=== PATIENT | male | born 1950 | race Two or more races ===

== ENCOUNTER 2022-12-25 07:16 | Day surgery (SDC) | payer OTHER ==
[~2022-12-25 07:16] MED LIST: CRESTOR10 MG PO; MICARDIS80 MG PO; PRISTIQ ER50 MG PO
[2022-12-25] MEDS ORDERED: TRAMADOL HCL50 MG PO (13:18)
[2022-12-25] MEDS ORDERED: TYLENOL ARTHRI650 MG PO (13:18)
[2022-12-25] MEDS ORDERED: MIRALAX17 GM PO (13:18)
== END 2022-12-25 17:45 | disposition home or self-care (01) ==
LOC: CIR.AMB 07:16
PROVIDERS: ATTEND Surgery
DX: K40.90 Unilateral inguinal hernia, without obstruction or gangrene, not specified as recurrent (principal); K42.9 Umbilical hernia without obstruction or gangrene; Z88.6 Allergy status to analgesic agent; I10 Essential (primary) hypertension; E78.49 Other hyperlipidemia; Z87.891 Personal history of nicotine dependence; Z20.822 Contact with and (suspected) exposure to COVID-19
CPT/HCPCS: 49592; 49650; C1781

== ENCOUNTER 2023-03-05 19:06 | Inpatient (IN) | payer OTHER ==
[~2023-03-05] VITALS: Ht 175.3 cm; Wt 84.4 kg
[~2023-03-05 19:06] MED LIST changes: +MIRALAX17 GM PO; +TRAMADOL HCL50 MG PO; +TYLENOL ARTHRI650 MG PO
--- NOTE | 2023-03-05 19:32 | NUR ---
PTE ALERTA Y ORIENTADO X3. KHUSHBOO REFERIDO MEDICO DE DR. FROYLAN GODINEZCTO POR DOLOR ABDOMINAL. SE DOROTHY SV Y SE UBICA PTE.
--- NOTE | 2023-03-05 22:34 | NUR ---
PTE ALERTA Y ORIENTADO X3. SE DOROTHY MUESTRAS DE LAB CON MEDIDAS ASEPTICAS Y SE ADMINISTRA MEDICAMENTO STEVE ORDEN MEDICA. SE COLOCA NASOGASTRICO EN FOSA NASAL IZQUIERDA STEVE ORDEN MEDICA A SUCCION INTERMITENTE. PTE EN ESPERA DE CT.
== END 2023-03-07 13:51 | disposition home or self-care (01) | DRG 394 ==
LOC: ER 19:06 → MEDI 22:54
PROVIDERS: ADMIT Internal Medicine; ATTEND Internal Medicine
PROC: BW21ZZZ Computerized Tomography (CT Scan) of Abdomen and Pelvis (ICD-10-PCS; principal; 2023-03-05)
DX: K40.20 Bilateral inguinal hernia, without obstruction or gangrene, not specified as recurrent (principal); N17.9 Acute kidney failure, unspecified; K31.84 Gastroparesis; Z20.822 Contact with and (suspected) exposure to COVID-19; I12.9 Hypertensive chronic kidney disease with stage 1 through stage 4 chronic kidney disease, or unspecified chronic kidney disease; N18.9 Chronic kidney disease, unspecified; E78.5 Hyperlipidemia, unspecified

== ENCOUNTER 2023-05-12 14:16 | Inpatient (IN) | payer OTHER ==
[~2023-05-12] VITALS: Ht 175.3 cm; Wt 793.8 kg
[2023-05-12] MEDS ORDERED: CRESTOR5 MG (14:31)
[2023-05-12] MEDS ORDERED: REGLAN5 MG/5 ML PO (14:31)
[2023-05-13] MEDS ORDERED: FAMOTIDINE40 MG (10:41)
[2023-05-13] MEDS ORDERED: PANTOPRAZOLE SO40 MG (10:41)
[2023-05-22] MEDS ORDERED: CRESTOR10 MG PO (16:05)
[2023-05-22] MEDS ORDERED: MICARDIS80 MG PO (16:05)
[2023-05-22] MEDS ORDERED: FAMOTIDINE40 MG PO (16:06)
[2023-05-22] MEDS ORDERED: CYANOCOBAL1000 MCG/1 IM (16:06)
[2023-05-22] MEDS ORDERED: FOLIC ACID5 MG/1 ML IV (16:07)
[2023-05-22] MEDS ORDERED: CLEOCIN HCL300 MG PO (16:08)
== END 2023-05-22 17:20 | disposition home or self-care (01) | DRG 326 ==
LOC: ER 14:16 → SURH 18:08 → ICU-2 18:08 → O/R 18:08 → SEC-K 18:08 → ICU-2 18:57 → O/R 20:41 → ICU 05-13 15:49 → SURH 05-20 13:49 → ICU-2 05-20 15:15 → ICU 05-20 15:16 → SURH 05-20 20:16
PROVIDERS: ADMIT Internal Medicine; ATTEND Internal Medicine
PROC: 0D9670Z Drainage of Stomach with Drainage Device, Via Natural or Artificial Opening (ICD-10-PCS; 2023-05-12)
PROC: BW21ZZZ Computerized Tomography (CT Scan) of Abdomen and Pelvis (ICD-10-PCS; 2023-05-12)
PROC: 0DB60ZZ Excision of Stomach, Open Approach (ICD-10-PCS; principal; 2023-05-13)
PROC: 0DS60ZZ Reposition Stomach, Open Approach (ICD-10-PCS; 2023-05-13)
PROC: 0W9J0ZZ Drainage of Pelvic Cavity, Open Approach (ICD-10-PCS; 2023-05-13)
PROC: 02HV33Z Insertion of Infusion Device into Superior Vena Cava, Percutaneous Approach (ICD-10-PCS; 2023-05-17)
PROC: 30233N1 Transfusion of Nonautologous Red Blood Cells into Peripheral Vein, Percutaneous Approach (ICD-10-PCS; 2023-05-17)
PROC: BD15YZZ Fluoroscopy of Upper GI using Other Contrast (ICD-10-PCS; 2023-05-18)
DX: K56.2 Volvulus (principal); K65.1 Peritoneal abscess; N17.9 Acute kidney failure, unspecified; D62 Acute posthemorrhagic anemia; B37.89 Other sites of candidiasis; E87.6 Hypokalemia; E78.5 Hyperlipidemia, unspecified; I12.9 Hypertensive chronic kidney disease with stage 1 through stage 4 chronic kidney disease, or unspecified chronic kidney disease; N18.9 Chronic kidney disease, unspecified

== ENCOUNTER 2023-08-30 11:24 | Emergency (ER) | payer OTHER ==
[~2023-08-30] VITALS: Ht 182.9 cm; Wt 68.9 kg
[~2023-08-30 11:24] MED LIST changes: +CLEOCIN HCL300 MG PO; +CRESTOR5 MG; +CYANOCOBAL1000 MCG/1 IM; +FAMOTIDINE40 MG; +FAMOTIDINE40 MG PO; +FOLIC ACID5 MG/1 ML IV; +PANTOPRAZOLE SO40 MG; +REGLAN5 MG/5 ML PO
[2023-08-30 13:11] LABS: CREATININE SERUM 1.37 mg/dL (0.70-1.30); GFR 51.22; POTASSIUM 4.71 mEq/L (3.5-5.1)
[2023-08-30 13:13] LABS: HEMATOCRIT 36.3 % (39.0-48.0); HEMOGLOBIN 12.2 g/dL (13-16.00); MEAN CELL VOLUME 86.9 fL (80.0-100.00); MEAN CORPUSCULAR HEMOGLOBIN 29.2 pg (27.00-32.0); MEAN CORPUSCULAR HGB CONC 33.6 g/dl (32.0-36.0); PLATELET COUNT 251 K/uL (150-450); RED BLOOD COUNT 4.18 M/uL (4.00-6.00); RED CELL DISTRIBUTION WIDTH 16.2 % (11.5-14.5)
[2023-08-30 14:24] LABS: PH,URINE 7.5 (5.0-8.0); URINE APPEARANCE Clear; URINE BILIRRUBIN Negative (NEGATIVE); URINE BLOOD Large; URINE COLOR Yellow; URINE GLUCOSE Negative (NEGATIVE); URINE LEUKOCYTE Negative; URINE NITRATE Negative; URINE PROTEIN Trace (NEGATIVE); URINE UROBILINOGEN 0.2 E.U./dl
[2023-08-30 14:28] LABS: URINE BACTERIA 32.7 uL (0.0-1933); URINE EPITHELIAL CELLS 2.1 uL (0.0-38.8); URINE WBC 10.1 uL (0.0-23.2)
[2023-08-30] MEDS ORDERED: TAMS0.4C PO (18:21)
[2023-08-30] MEDS ORDERED: TRAMADOL HCL50 MG PO (18:21)
== END 2023-08-30 18:36 | disposition home or self-care (01) ==
LOC: ER
PROVIDERS: General Practice
DX: N20.1 Calculus of ureter (principal); R10.32 Left lower quadrant pain; K21.9 Gastro-esophageal reflux disease without esophagitis; Z88.6 Allergy status to analgesic agent
CPT/HCPCS: 36415; 74019; 74176; 96365; 96366; 99284; J2405; J3490; J7030

== ENCOUNTER 2023-11-30 01:49 | Inpatient (IN) | payer OTHER ==
[~2023-11-30] VITALS: Ht 172.7 cm; Wt 72.6 kg
[~2023-11-30 01:49] MED LIST changes: +TAMS0.4C PO
[2023-11-30] MEDS ORDERED: MEPERIDINE HCL/PF 50 MG/ML VIAL IM STA (02:21)
[2023-11-30] MEDS ORDERED: PROMETHAZINE HCL 50 MG/ML AMPUL IM STA (02:21)
[2023-11-30] MEDS ORDERED: 0.9 % SODIUM CHLORIDE 1,000 ML IV ONE (02:30)
[2023-11-30 04:06] LABS: BILIRUBIN TOTAL 0.41 mg/dL (0.3-1.2); BILIRUBIN,CONJUGATED 0.14 mg/dL (0.0-0.2); BILIRUBIN,UNCONJUGATED 0.27 mg/dL (0.0-0.6); CALCIUM 9.5 mg/dL (8.5-10.1); CREATININE SERUM 1.58 mg/dL (0.70-1.30); GFR 43.45; GLOBULINA 4.2 G/DL (2.4-3.5); POTASSIUM 4.12 mEq/L (3.5-5.1); TOTAL PROTEIN 8.2 gm/dL (6.4-8.2)
[2023-11-30 04:20] LABS: HEMATOCRIT 41.4 % (39.0-48.0); HEMOGLOBIN 13.8 g/dL (13-16.00); MEAN CELL VOLUME 87.1 fL (80.0-100.00); MEAN CORPUSCULAR HGB CONC 33.3 g/dl (32.0-36.0); PLATELET COUNT 295 K/uL (150-450); RED BLOOD COUNT 4.75 M/uL (4.00-6.00); RED CELL DISTRIBUTION WIDTH 15.2 % (11.5-14.5)
[2023-11-30 04:27] LABS: INR 1.02; PARTIAL THROMBOPLASTIN TIME 24.6 SECONDS (22.0-34.0); PROTHROMBIN TIME 10.7 SECONDS (9.0-11.5)
[2023-11-30] MEDS ORDERED: 0.9 % SODIUM CHLORIDE 1,000 ML IV SCH (10:15)
[2023-11-30] MEDS ORDERED: PANTOPRAZOLE SODIUM 40 MG/VIAL VIAL IV PUSH SCH (10:16)
[2023-11-30] MEDS ORDERED: LORazepam 2 MG/ML VIAL IV PUSH PRN (10:30)
[2023-11-30] MEDS ORDERED: HYOSCYAMINE SULFATE 0.125 MG TAB.SUBL SL PRN (10:30)
[2023-11-30] MEDS ORDERED: MORPHINE SULFATE 4 MG/ML VIAL IV PRN (10:30)
[2023-11-30] MEDS ORDERED: PIPERACILLIN/TAZOBACTAM SODIUM 3.375 GM in 0.9 % SODIUM CHLORIDE 100 ML IV SCH (12:00)
[2023-11-30] MEDS ORDERED: ENALAPRILAT DIHYDRATE 1.25 MG/ML VIAL IV SCH (12:00)
[2023-11-30 12:48] LABS: URINE APPEARANCE Clear; URINE BILIRRUBIN Negative (NEGATIVE); URINE BLOOD Negative; URINE COLOR Dark Yellow; URINE LEUKOCYTE Negative; URINE NITRATE Negative; URINE PROTEIN Trace (NEGATIVE); URINE UROBILINOGEN 0.2 E.U./dl
[2023-11-30 12:49] LABS: URINE BACTERIA 74.3 uL (0.0-1933); URINE EPITHELIAL CELLS 7.2 uL (0.0-38.8); URINE WBC 6.9 uL (0.0-23.2)
[2023-11-30 13:27] LABS: URINE GLUCOSE 100 MG/DL (NEGATIVE); URINE RBC 1.1 uL (0.0-20.8)
[2023-12-01 05:28] LABS: HEMATOCRIT 42.6 % (39.0-48.0); HEMOGLOBIN 14.7 g/dL (13-16.00); MEAN CORPUSCULAR HGB CONC 34.5 g/dl (32.0-36.0); PLATELET COUNT 257 K/uL (150-450); RED BLOOD COUNT 4.89 M/uL (4.00-6.00); RED CELL DISTRIBUTION WIDTH 15.1 % (11.5-14.5)
[2023-12-01 05:41] LABS: INR 1.17; PARTIAL THROMBOPLASTIN TIME 30.1 SECONDS (22.0-34.0); PROTHROMBIN TIME 12.1 SECONDS (9.0-11.5)
[2023-12-01 05:53] LABS: BILIRUBIN TOTAL 0.99 mg/dL (0.3-1.2); BILIRUBIN,CONJUGATED 0.32 mg/dL (0.0-0.2); BILIRUBIN,UNCONJUGATED 0.67 mg/dL (0.0-0.6); CALCIUM 8.7 mg/dL (8.5-10.1); CHOL HDL RATIO 2.5 (0-5.0); CREATININE SERUM 1.58 mg/dL (0.70-1.30); GFR 43.45; POTASSIUM 5.04 mEq/L (3.5-5.1); PROSTATIC SPECIFIC ANTIGEN 1.13 NG/ML (0.010-4.00); TOTAL PROTEIN 6.3 gm/dL (6.4-8.2); TSH 1.48 uIU/mL (0.358-3.74)
[2023-12-01 05:54] LABS: T4 FREE 1.5 NG/ML (0.76-1.46)
[2023-12-01 07:57] LABS: URINE APPEARANCE Clear; URINE BILIRRUBIN Negative (NEGATIVE); URINE BLOOD Negative; URINE COLOR Yellow; URINE GLUCOSE Negative (NEGATIVE); URINE LEUKOCYTE Negative; URINE NITRATE Negative; URINE PROTEIN 30 (NEGATIVE)
[2023-12-01 08:01] LABS: URINE BACTERIA 15.1 uL (0.0-1933); URINE RBC 2.5 uL (0.0-20.8); URINE WBC 6.9 uL (0.0-23.2)
[2023-12-01] MEDS ORDERED: RINGERS SOLUTION,LACTATED 1,000 ML IV SCH (09:00)
[2023-12-01] MEDS ORDERED: MORPHINE SULFATE 4 MG/ML CARTRIDGE IV PRN (12:27)
[2023-12-01 14:23] LABS: HEMOGLOBIN 13.9 g/dL (13-16.00); MEAN CORPUSCULAR HEMOGLOBIN 29.8 pg (27.00-32.0); MEAN CORPUSCULAR HGB CONC 33.8 g/dl (32.0-36.0); PLATELET COUNT 247 K/uL (150-450); RED BLOOD COUNT 4.65 M/uL (4.00-6.00); RED CELL DISTRIBUTION WIDTH 15.1 % (11.5-14.5)
[2023-12-01 14:41] LABS: CALCIUM 8.8 mg/dL (8.5-10.1); CREATININE SERUM 1.57 mg/dL (0.70-1.30); GFR 43.77; POTASSIUM 4.54 mEq/L (3.5-5.1)
[2023-12-02 05:57] LABS: ALBUMIN 2.8 gm/dL (3.4-5.0); BILIRUBIN TOTAL 0.89 mg/dL (0.3-1.2); CALCIUM 8.7 mg/dL (8.5-10.1); CREATININE SERUM 1.47 mg/dL (0.70-1.30); GFR 47.22; GLOBULINA 3.2 G/DL (2.4-3.5); POTASSIUM 4.55 mEq/L (3.5-5.1)
[2023-12-02] MEDS ORDERED: hydrALAZINE HCL 20 MG VIAL IV SCH (12:00)
[2023-12-02] MEDS ORDERED: ENOXAPARIN SODIUM 80 MG/0.8 ML SYRINGE SUBCUTANEO STA (12:13)
[2023-12-02 14:24] LABS: ALBUMIN 2.8 gm/dL (3.4-5.0); BILIRUBIN TOTAL 0.97 mg/dL (0.3-1.2); CALCIUM 9.1 mg/dL (8.5-10.1); CREATININE SERUM 1.43 mg/dL (0.70-1.30); GFR 48.75; GLOBULINA 3.5 G/DL (2.4-3.5); POTASSIUM 4.06 mEq/L (3.5-5.1); TOTAL PROTEIN 6.3 gm/dL (6.4-8.2)
[2023-12-02 15:16] LABS: INR 1.01; PARTIAL THROMBOPLASTIN TIME 30.2 SECONDS (22.0-34.0); PROTHROMBIN TIME 10.6 SECONDS (9.0-11.5)
[2023-12-02 15:17] LABS: PH,URINE 5.5 (5.0-8.0); URINE APPEARANCE Clear; URINE BACTERIA 31.4 uL (0.0-1933); URINE BILIRRUBIN Negative (NEGATIVE); URINE BLOOD Negative; URINE COLOR Yellow; URINE EPITHELIAL CELLS 5.4 uL (0.0-38.8); URINE GLUCOSE Negative (NEGATIVE); URINE LEUKOCYTE Negative; URINE NITRATE Negative; URINE PROTEIN 30 (NEGATIVE); URINE UROBILINOGEN 0.2 E.U./dl; URINE WBC 5.1 uL (0.0-23.2)
[2023-12-02 15:19] LABS: URINE RBC 1.8 uL (0.0-20.8)
[2023-12-02 15:20] LABS: FIBRINOGEN > 860 mg/dL (187.0-446.0)
[2023-12-02] MEDS ORDERED: ENOXAPARIN SODIUM 80 MG/0.8 ML SYRINGE SUBCUTANEO SCH (21:00)
[2023-12-03 08:32] LABS: HEMATOCRIT 32.1 % (39.0-48.0); HEMOGLOBIN 11.4 g/dL (13-16.00); MEAN CELL VOLUME 87.7 fL (80.0-100.00); MEAN CORPUSCULAR HEMOGLOBIN 31.1 pg (27.00-32.0); MEAN CORPUSCULAR HGB CONC 35.4 g/dl (32.0-36.0); PLATELET COUNT 233 K/uL (150-450); RED BLOOD COUNT 3.66 M/uL (4.00-6.00); RED CELL DISTRIBUTION WIDTH 14.9 % (11.5-14.5)
[2023-12-03 09:03] LABS: INR 0.98; PARTIAL THROMBOPLASTIN TIME 28.5 SECONDS (22.0-34.0); PROTHROMBIN TIME 10.3 SECONDS (9.0-11.5)
[2023-12-03 09:11] LABS: ALBUMIN 2.8 gm/dL (3.4-5.0); BILIRUBIN TOTAL 1.34 mg/dL (0.3-1.2); CALCIUM 8.7 mg/dL (8.5-10.1); CREATININE SERUM 1.33 mg/dL (0.70-1.30); GLOBULINA 3.2 G/DL (2.4-3.5); POTASSIUM 4.23 mEq/L (3.5-5.1)
[2023-12-03 12:49] LABS: ABG PH 7.467 (7.35-7.45); ABG PO2 91.8 mmHg (80-100); ABG pCO2 37.1 mmHg (35-45); BASE EXCESS 2.6 mmol/l; BICARBONATE 26.2 mmol/l (23-25); SaO2 97.7 %; Tco2 27.3 mmol/l
[2023-12-03 12:50] LABS: allen test SATISFACTORY; o2 21 %; puncture site RADIAL RIGHT
[2023-12-03 13:37] LABS: PLATELET ESTIMATE NORMAL (NORMAL)
[2023-12-03] MEDS ORDERED: ONDANSETRON HCL 2 MG/ML VIAL IV PRN (20:00)
[2023-12-03] MEDS ORDERED: DEXTROSE 50 % IN WATER 0.5 G/ML DISP.SYRIN IV PRN (20:00)
[2023-12-03] MEDS ORDERED: OxyCODONE HCL 5 MG TABLET (ROXICODONE) PO PRN (20:00)
[2023-12-03] MEDS ORDERED: ACETAMINOPHEN 500 MG GEL..CAP PO SCH (20:00)
[2023-12-03] MEDS ORDERED: MORPHINE SULFATE 4 MG/ML VIAL IV PRN (20:00)
[2023-12-03] MEDS ORDERED: 0.9 % SODIUM CHLORIDE 1,000 ML IV SCH (20:00)
[2023-12-03] MEDS ORDERED: SUGAMMADEX SODIUM 200 MG/2 ML VIAL IV ONE ×2 (20:20→22:45)
[2023-12-03] MEDS ORDERED: INSULIN LISPRO 1,000 UNIT/10 ML UNITS SUBCUTANEO SCH (21:00)
[2023-12-03] MEDS ORDERED: FAMOTIDINE/PF 20 MG/2 ML VIAL IV PUSH SCH (21:00)
[2023-12-03] MEDS ORDERED: PANTOPRAZOLE SODIUM 40 MG/VIAL VIAL ONE (22:07)
[2023-12-03 23:27] LABS: HEMATOCRIT 36.2 % (39.0-48.0); HEMOGLOBIN 12.1 g/dL (13-16.00); MEAN CELL VOLUME 86.5 fL (80.0-100.00); MEAN CORPUSCULAR HGB CONC 33.5 g/dl (32.0-36.0); PLATELET COUNT 268 K/uL (150-450); RED BLOOD COUNT 4.18 M/uL (4.00-6.00); RED CELL DISTRIBUTION WIDTH 15.2 % (11.5-14.5)
[2023-12-03 23:50] LABS: ALBUMIN 2.5 gm/dL (3.4-5.0); CALCIUM 8.3 mg/dL (8.5-10.1); CREATININE SERUM 1.26 mg/dL (0.70-1.30); GFR 56.42; MAGNESIUM 1.8 mg/dL (1.8-2.4); PHOSPHOROUS 2.8 mg/dL (2.5-4.9); POTASSIUM 3.52 mEq/L (3.5-5.1)
[2023-12-04] MEDS ORDERED: hydrALAZINE HCL 20 MG VIAL ONE ×2 (00:57→05:32)
[2023-12-04] MEDS ORDERED: GABAPENTIN 300 MG CAPSULE PO SCH (01:00)
[2023-12-04] MEDS ORDERED: PIPERACILLIN/TAZOBACTAM SODIUM 3.375 GM VIAL IV ONE ×2 (04:34→07:02)
[2023-12-04 07:18] LABS: ALBUMIN 2.4 gm/dL (3.4-5.0); GFR 73.66; MAGNESIUM 1.9 mg/dL (1.8-2.4); PHOSPHOROUS 3.4 mg/dL (2.5-4.9); POTASSIUM 3.53 mEq/L (3.5-5.1)
[2023-12-04 07:20] LABS: HEMATOCRIT 37.1 % (39.0-48.0); HEMOGLOBIN 12.5 g/dL (13-16.00); MEAN CELL VOLUME 87.7 fL (80.0-100.00); MEAN CORPUSCULAR HEMOGLOBIN 29.5 pg (27.00-32.0); MEAN CORPUSCULAR HGB CONC 33.6 g/dl (32.0-36.0); PLATELET COUNT 284 K/uL (150-450); RED BLOOD COUNT 4.23 M/uL (4.00-6.00); RED CELL DISTRIBUTION WIDTH 14.8 % (11.5-14.5)
[2023-12-04] MEDS ORDERED: HYOSCYAMINE SULFATE 0.125 MG TAB.SUBL SL SCH (09:00)
[2023-12-04] MEDS ORDERED: PIPERACILLIN/TAZOBACTAM SODIUM 4.5 GM in 0.9 % SODIUM CHLORIDE 100 ML IV SCH ×2 (12:00→18:00)
[2023-12-04] MEDS ORDERED: METRONIDAZOLE/SODIUM CHLORIDE 100 ML IV SCH (17:00)
[2023-12-05 07:20] LABS: HEMATOCRIT 26.2 % (39.0-48.0); MEAN CELL VOLUME 86.6 fL (80.0-100.00); MEAN CORPUSCULAR HGB CONC 34.1 g/dl (32.0-36.0); PLATELET COUNT 221 K/uL (150-450); RED BLOOD COUNT 3.03 M/uL (4.00-6.00); RED CELL DISTRIBUTION WIDTH 14.7 % (11.5-14.5)
[2023-12-05 07:48] LABS: MEAN CORPUSCULAR HEMOGLOBIN 29.3 pg (27.00-32.0)
[2023-12-05 07:49] LABS: HEMOGLOBIN 8.9 g/dL (13-16.00)
[2023-12-05 08:12] LABS: ALBUMIN 1.9 gm/dL (3.4-5.0); BILIRUBIN TOTAL 0.64 mg/dL (0.3-1.2); CALCIUM 7.3 mg/dL (8.5-10.1); CREATININE SERUM 0.88 mg/dL (0.70-1.30); GFR 85.37; GLOBULINA 2.2 G/DL (2.4-3.5); PHOSPHOROUS 2.6 mg/dL (2.5-4.9); POTASSIUM 3.03 mEq/L (3.5-5.1); TOTAL PROTEIN 4.1 gm/dL (6.4-8.2)
[2023-12-05] MEDS ORDERED: POTASSIUM CHLORIDE 20MEQ/100ML H2O PB IV ONE (10:30)
[2023-12-05] MEDS ORDERED: DEXTROSE 5 %-0.45 % SOD CHLORD 1,000 ML IV SCH (15:30)
[2023-12-05] MEDS ORDERED: ENOXAPARIN SODIUM 40 MG/0.4 ML SYRINGE SUBCUTANEO SCH (17:00)
[2023-12-05] MEDS ORDERED: LOPERAMIDE HCL 2 MG CAPSULE PO STA (21:03)
[2023-12-06 08:21] LABS: CALCIUM 7.7 mg/dL (8.5-10.1); CREATININE SERUM 1.03 mg/dL (0.70-1.30); GFR 71.19; POTASSIUM 3.04 mEq/L (3.5-5.1)
[2023-12-06] MEDS ORDERED: ENOXAPARIN SODIUM 40 MG/0.4 ML SYRINGE SUBCUTANEO SCH (09:00)
[2023-12-06 09:12] LABS: MEAN CELL VOLUME 86.6 fL (80.0-100.00); MEAN CORPUSCULAR HGB CONC 34.2 g/dl (32.0-36.0); PLATELET COUNT 244 K/uL (150-450); RED BLOOD COUNT 2.89 M/uL (4.00-6.00); RED CELL DISTRIBUTION WIDTH 14.6 % (11.5-14.5)
[2023-12-06 09:21] LABS: HEMOGLOBIN 8.6 g/dL (13-16.00); MEAN CORPUSCULAR HEMOGLOBIN 29.7 pg (27.00-32.0)
[2023-12-06] MEDS ORDERED: POTASSIUM CHLORIDE IN WATER 40 MEQ/100 ML PIGGYBAG IV SCH (13:00)
[2023-12-06] MEDS ORDERED: PIPERACILLIN/TAZOBACTAM SODIUM 4.5 GM VIAL IV ONE (23:13)
[2023-12-07] MEDS ORDERED: VANCOMYCIN HCL 1,000 MG VIAL IV ONE (06:30)
[2023-12-07 06:45] LABS: HEMATOCRIT 28.1 % (39.0-48.0); HEMOGLOBIN 9.6 g/dL (13-16.00); MEAN CELL VOLUME 87.7 fL (80.0-100.00); MEAN CORPUSCULAR HEMOGLOBIN 30.1 pg (27.00-32.0); MEAN CORPUSCULAR HGB CONC 34.3 g/dl (32.0-36.0); PLATELET COUNT 303 K/uL (150-450); RED CELL DISTRIBUTION WIDTH 14.7 % (11.5-14.5)
[2023-12-07 07:08] LABS: ALBUMIN 2.3 gm/dL (3.4-5.0); CALCIUM 8.4 mg/dL (8.5-10.1); CREATININE SERUM 1.27 mg/dL (0.70-1.30); GFR 55.9; PHOSPHOROUS 2.8 mg/dL (2.5-4.9)
[2023-12-07 07:09] LABS: POTASSIUM 5.09 mEq/L (3.5-5.1)
[2023-12-07] MEDS ORDERED: AMLODIPINE BESYLATE 2.5 MG TABLET PO SCH (08:35)
[2023-12-07] MEDS ORDERED: CANDESARTAN CILEXETIL 16 MG TABLET PO SCH (09:00)
[2023-12-07] MEDS ORDERED: VITAMIN B COMPLEX/LYSINE 1 ML ML PO SCH (13:39)
[2023-12-07] MEDS ORDERED: TRAMADOL HCL 50 MG TABLET PO PRN (13:45)
[2023-12-07] MEDS ORDERED: LOPERAMIDE HCL 2 MG CAPSULE PO SCH (17:00)
[2023-12-07] MEDS ORDERED: AMPICILLIN SODIUM/SULBACTAM NA 3,000 MG in 0.9 % SODIUM CHLORIDE 100 ML IV SCH (18:00)
[2023-12-08] MEDS ORDERED: DEXTROSE 5 %-0.45 % SOD CHLORD 1,000 ML IV SCH (08:45)
[2023-12-08] MEDS ORDERED: ONDANSETRON HCL 2 MG/ML VIAL IV PRN (08:53)
[2023-12-08] MEDS ORDERED: PROMETHAZINE HCL 25 MG/ML AMPUL IM ONE (09:00)
[2023-12-08] MEDS ORDERED: KETOROLAC TROMETHAMINE 30 MG VIAL IV ONE (09:00)
[2023-12-09 05:03] LABS: HEMATOCRIT 27.4 % (39.0-48.0); MEAN CELL VOLUME 87.6 fL (80.0-100.00); MEAN CORPUSCULAR HGB CONC 34.8 g/dl (32.0-36.0); PLATELET COUNT 360 K/uL (150-450); RED BLOOD COUNT 3.13 M/uL (4.00-6.00)
[2023-12-09 05:19] LABS: HEMOGLOBIN 9.5 g/dL (13-16.00); MEAN CORPUSCULAR HEMOGLOBIN 30.3 pg (27.00-32.0)
[2023-12-09 05:23] LABS: CALCIUM 8.4 mg/dL (8.5-10.1); CREATININE SERUM 1.22 mg/dL (0.70-1.30); GFR 58.56; POTASSIUM 4.24 mEq/L (3.5-5.1)
[2023-12-09] MEDS ORDERED: FAMOtidine 40 MG TABLET PO SCH (21:00)
[2023-12-10] MEDS ORDERED: TRAM1TAB98 PO (09:46)
[2023-12-10] MEDS ORDERED: INTESTINEX680 M1 PO (09:47)
[2023-12-10] MEDS ORDERED: PEPCID AC20 MG PO (09:47)
== END 2023-12-10 14:09 | disposition home or self-care (01) | DRG 330 ==
LOC: ER 01:49 → SURH 11:55 → SEC-K 11:55 → SURH 12:18
PROVIDERS: General Practice; Internal Medicine; Internal Medicine Infectious Disease; Surgery; ADMIT Internal Medicine; ATTEND Internal Medicine
PROC: BW21ZZZ Computerized Tomography (CT Scan) of Abdomen and Pelvis (ICD-10-PCS; 2023-11-30)
PROC: BW21ZZZ Computerized Tomography (CT Scan) of Abdomen and Pelvis (ICD-10-PCS; 2023-12-02)
PROC: 4A12X4Z Monitoring of Cardiac Electrical Activity, External Approach (ICD-10-PCS; 2023-12-02)
PROC: 0DH68UZ Insertion of Feeding Device into Stomach, Via Natural or Artificial Opening Endoscopic (ICD-10-PCS; 2023-12-02)
PROC: B246ZZZ Ultrasonography of Right and Left Heart (ICD-10-PCS; 2023-12-03)
PROC: 02HV33Z Insertion of Infusion Device into Superior Vena Cava, Percutaneous Approach (ICD-10-PCS; 2023-12-03)
PROC: 30233K1 Transfusion of Nonautologous Frozen Plasma into Peripheral Vein, Percutaneous Approach (ICD-10-PCS; 2023-12-03)
PROC: 0DTE0ZZ Resection of Large Intestine, Open Approach (ICD-10-PCS; 2023-12-03)
PROC: 3E1M38Z Irrigation of Peritoneal Cavity using Irrigating Substance, Percutaneous Approach (ICD-10-PCS; 2023-12-03)
PROC: 0D1B0Z4 Bypass Ileum to Cutaneous, Open Approach (ICD-10-PCS; principal; 2023-12-03 18:00)
DX: K55.039 Acute (reversible) ischemia of large intestine, extent unspecified (principal); D62 Acute posthemorrhagic anemia; E87.0 Hyperosmolality and hypernatremia; K40.30 Unilateral inguinal hernia, with obstruction, without gangrene, not specified as recurrent; N17.8 Other acute kidney failure; I12.9 Hypertensive chronic kidney disease with stage 1 through stage 4 chronic kidney disease, or unspecified chronic kidney disease; K55.1 Chronic vascular disorders of intestine; E87.6 Hypokalemia; E11.22 Type 2 diabetes mellitus with diabetic chronic kidney disease; Z79.4 Long term (current) use of insulin

== ENCOUNTER 2024-04-05 12:42 | Inpatient (IN) | payer OTHER ==
[~2024-04-05] VITALS: Ht 175.3 cm; Wt 0.5 kg
[~2024-04-05 12:42] MED LIST changes: +ABATINEX680 MG PO; +BUPROPION HCL200 MG PO; +DEXAMETHASO4 MG/1 M1 PO; +FLUOXETINE HCL20 MG PO; +INTESTINEX680 M1 PO; +LOSARTAN POTASS25 MG PO; +METOCLOPRAMIDE H5 MG PO; +MIRTAZAPINE30 MG PO; +ONDANSETRON ODT4 MG PO; +PEPCID AC20 MG PO; +QUETIAPINE FUMA25 MG PO; +TRAM1TAB98 PO
[2024-04-05] MEDS ORDERED: SEROQUEL25 MG (13:31)
[2024-04-05] MEDS ORDERED: MICARDIS40 MG PO (13:32)
--- NOTE | 2024-04-05 13:36 | NUR ---
PTE ALERTA Y ORIENTADO X3 REFIERE DOLOR ABDOMINAL DESDE CARLOS. PTE CON ILEOSTOMIA. SE MIDEN S/V Y SE UBICA.
[2024-04-05] MEDS ORDERED: 0.9 % SODIUM CHLORIDE 500 ML IV ONE (16:30)
[2024-04-05] MEDS ORDERED: METOCLOPRAMIDE HCL 10 MG in 0.9 % SODIUM CHLORIDE 50 ML IV ONE (16:30)
[2024-04-05] MEDS ORDERED: FAMOTIDINE/PF 20 MG/2 ML VIAL IV ONE (16:30)
[2024-04-05] MEDS ORDERED: METOCLOPRAMIDE HCL 5 MG/ML VIAL ONE (16:53)
[2024-04-05] MEDS ORDERED: FAMOTIDINE/PF 20 MG/2 ML VIAL ONE (16:53)
[2024-04-05] MEDS ORDERED: MORPHINE SULFATE 4 MG/ML VIAL IV ONE (17:00)
--- NOTE | 2024-04-05 17:07 | NUR ---
SE EDUCA PACIENTE SOBRE EL [place] MEDICO Y ESTA REFIERE ENTENDER. SE CANALIZA Y SE ADMINITRAN MEDICAMENTOS STEVE ORDEN MEDICA. SE DOROTHY MUESTRAS DE LABORATORIOS. SE ENTREGA ENVASE DE U/A Y POTES DE CONTRASTE PO.
[2024-04-05 17:27] LABS: HEMATOCRIT 37.9 % (39.0-48.0); HEMOGLOBIN 12.8 g/dL (13-16.00); MEAN CELL VOLUME 88.4 fL (80.0-100.00); MEAN CORPUSCULAR HEMOGLOBIN 29.8 pg (27.00-32.0); MEAN CORPUSCULAR HGB CONC 33.7 g/dl (32.0-36.0); PLATELET COUNT 325 K/uL (150-450); RED BLOOD COUNT 4.29 M/uL (4.00-6.00)
[2024-04-05 17:37] LABS: RED CELL DISTRIBUTION WIDTH 18.1 % (11.5-14.5)
[2024-04-05 17:52] LABS: ALBUMIN 3.1 gm/dL (3.4-5.0); BILIRUBIN TOTAL 0.4 mg/dL (0.3-1.2); CALCIUM 9.6 mg/dL (8.5-10.1); CREATININE SERUM 2.01 mg/dL (0.70-1.30); GFR 32.91; GLOBULINA 4.1 G/DL (2.4-3.5); POTASSIUM 5.21 mEq/L (3.5-5.1); TOTAL PROTEIN 7.2 gm/dL (6.4-8.2)
[2024-04-05 17:55] LABS: INR 0.98; PARTIAL THROMBOPLASTIN TIME 20.5 SECONDS (22.0-34.0); PROTHROMBIN TIME 10.3 SECONDS (9.0-11.5)
[2024-04-05 18:37] LABS: URINE APPEARANCE Clear; URINE BILIRRUBIN Negative (NEGATIVE); URINE BLOOD Negative; URINE COLOR Dark Yellow; URINE GLUCOSE Negative (NEGATIVE); URINE LEUKOCYTE Negative; URINE NITRATE Negative; URINE PROTEIN 30 (NEGATIVE); URINE UROBILINOGEN 0.2 E.U./dl
[2024-04-05 18:38] LABS: URINE BACTERIA 234.3 uL (0.0-1933); URINE EPITHELIAL CELLS 10.8 uL (0.0-38.8); URINE WBC 5.2 uL (0.0-23.2)
[2024-04-05 19:01] LABS: URINE RBC 0.9 uL (0.0-20.8)
[2024-04-05] MEDS ORDERED: PIPERACILLIN/TAZOBACTAM SODIUM 2.25 GM VIAL IV ONE (21:15)
[2024-04-05] MEDS ORDERED: ONDANSETRON HCL 4 MG in 0.9 % SODIUM CHLORIDE 50 ML IV PRN (22:00)
[2024-04-05] MEDS ORDERED: MEPERIDINE HCL/PF 50 MG/ML VIAL IM ONE (22:00)
[2024-04-05] MEDS ORDERED: 0.9 % SODIUM CHLORIDE 1,000 ML IV SCH (22:00)
[2024-04-05] MEDS ORDERED: PROMETHAZINE HCL 50 MG/ML AMPUL IM ONE ×2 (22:00→22:16)
[2024-04-06] MEDS ORDERED: PIPERACILLIN/TAZOBACTAM SODIUM 2.25 GM in DEXTROSE 5 % IN WATER 50 ML IV SCH
[2024-04-06 01:46] LABS: MAGNESIUM 1.9 mg/dL (1.8-2.4); PHOSPHOROUS 5.1 mg/dL (2.5-4.9)
[2024-04-06] MEDS ORDERED: FAMOTIDINE/PF 20 MG in 0.9 % SODIUM CHLORIDE 8 ML IV PUSH SCH (09:00)
[2024-04-06] MEDS ORDERED: ONDANSETRON HCL 4 MG in DEXTROSE 5 % IN WATER 50 ML IV PRN (11:30)
[2024-04-06] MEDS ORDERED: PANTOPRAZOLE SODIUM 80 MG in 0.9 % SODIUM CHLORIDE 100 ML IV SCH (11:30)
[2024-04-06] MEDS ORDERED: MORPHINE SULFATE 4 MG/ML CARTRIDGE IV PRN (11:45)
[2024-04-06] MEDS ORDERED: METOCLOPRAMIDE HCL 10 MG in DEXTROSE 5 % IN WATER 50 ML IV SCH (13:00)
[2024-04-07 07:02] LABS: HEMATOCRIT 28.4 % (39.0-48.0); MEAN CELL VOLUME 88.2 fL (80.0-100.00); MEAN CORPUSCULAR HGB CONC 34.7 g/dl (32.0-36.0); PLATELET COUNT 230 K/uL (150-450); RED BLOOD COUNT 3.22 M/uL (4.00-6.00); RED CELL DISTRIBUTION WIDTH 17.9 % (11.5-14.5)
[2024-04-07 07:04] LABS: HEMOGLOBIN 9.8 g/dL (13-16.00); MEAN CORPUSCULAR HEMOGLOBIN 30.4 pg (27.00-32.0)
[2024-04-07 07:30] LABS: ALBUMIN 2.4 gm/dL (3.4-5.0); BILIRUBIN TOTAL 0.81 mg/dL (0.3-1.2); CALCIUM 8.6 mg/dL (8.5-10.1); CREATININE SERUM 1.96 mg/dL (0.70-1.30); GFR 33.88; POTASSIUM 5.21 mEq/L (3.5-5.1); TOTAL PROTEIN 5.4 gm/dL (6.4-8.2)
[2024-04-07] MEDS ORDERED: POTASSIUM CHLORIDE/D5-0.9%NACL 1,000 ML IV SCH (08:15)
[2024-04-08] MEDS ORDERED: SODIUM CL 0.9% 100 ML IV.SOLN IV ONE ×2 (11:03→11:04)
[2024-04-08] MEDS ORDERED: DEXTROSE 5 % AND 0.9 % NACL 1,000 ML IV SCH (19:45)
[2024-04-09] MEDS ORDERED: SODIUM CL 0.9% 100 ML IV.SOLN IV ONE ×2 (00:50→00:51)
[2024-04-09 07:45] LABS: HEMATOCRIT 28.2 % (39.0-48.0); HEMOGLOBIN 9.7 g/dL (13-16.00); MEAN CELL VOLUME 88.6 fL (80.0-100.00); MEAN CORPUSCULAR HEMOGLOBIN 30.5 pg (27.00-32.0); MEAN CORPUSCULAR HGB CONC 34.4 g/dl (32.0-36.0); PLATELET COUNT 278 K/uL (150-450); RED BLOOD COUNT 3.18 M/uL (4.00-6.00); RED CELL DISTRIBUTION WIDTH 18.2 % (11.5-14.5)
[2024-04-09 08:08] LABS: ALBUMIN 2.4 gm/dL (3.4-5.0); BILIRUBIN TOTAL 0.58 mg/dL (0.3-1.2); C-REACTIVE PROTEIN 2.83 MG/DL (0.00-0.29); CALCIUM 8.7 mg/dL (8.5-10.1); CREATININE SERUM 1.85 mg/dL (0.70-1.30); GFR 36.22; GLOBULINA 2.9 G/DL (2.4-3.5); MAGNESIUM 1.8 mg/dL (1.8-2.4); PHOSPHOROUS 3.3 mg/dL (2.5-4.9); POTASSIUM 4.83 mEq/L (3.5-5.1); TOTAL PROTEIN 5.3 gm/dL (6.4-8.2)
[2024-04-10] MEDS ORDERED: Cyanocobalamin/Mecobalamin 1 TAB.SL SL SCH (12:00)
[2024-04-10] MEDS ORDERED: SOD FERRIC GLUC COMPLX/SUCROSE 62.5 MG in 0.9 % SODIUM CHLORIDE 50 ML IV SCH (12:00)
[2024-04-11 07:19] LABS: MEAN CELL VOLUME 87.3 fL (80.0-100.00); MEAN CORPUSCULAR HGB CONC 34.5 g/dl (32.0-36.0); PLATELET COUNT 248 K/uL (150-450); RED BLOOD COUNT 2.86 M/uL (4.00-6.00); RED CELL DISTRIBUTION WIDTH 17.7 % (11.5-14.5)
[2024-04-11 07:27] LABS: HEMOGLOBIN 8.6 g/dL (13-16.00)
[2024-04-11 08:01] LABS: ALBUMIN 2.1 gm/dL (3.4-5.0); BILIRUBIN TOTAL 0.63 mg/dL (0.3-1.2); CREATININE SERUM 1.62 mg/dL (0.70-1.30); GFR 42.21; GLOBULINA 2.7 G/DL (2.4-3.5); PHOSPHOROUS 2.6 mg/dL (2.5-4.9); POTASSIUM 3.74 mEq/L (3.5-5.1); TOTAL PROTEIN 4.8 gm/dL (6.4-8.2)
[2024-04-11 09:03] LABS: MAGNESIUM 1.2 mg/dL (1.8-2.4)
[2024-04-11] MEDS ORDERED: FUROsemide 20 MG/2 ML VIAL IV SCH (12:00)
[2024-04-11] MEDS ORDERED: DEXTROSE 5 % IN WATER 1,000 ML IV SCH (12:00)
[2024-04-11] MEDS ORDERED: MAGNESIUM SULFATE IN WATER 4 GM/100 ML PIGGYBACK IV NR (12:00)
[2024-04-11] MEDS ORDERED: PANTOPRAZOLE SODIUM 80 MG in 0.9 % SODIUM CHLORIDE 100 ML IV SCH (16:00)
[2024-04-12] MEDS ORDERED: DIATRIZOATE MEGLUMINE, SODIUM 30 ML BOTTLE PO NR (07:15)
[2024-04-12 07:50] LABS: HEMATOCRIT 35.7 % (39.0-48.0); HEMOGLOBIN 12.5 g/dL (13-16.00); MEAN CORPUSCULAR HEMOGLOBIN 30.3 pg (27.00-32.0); MEAN CORPUSCULAR HGB CONC 35.2 g/dl (32.0-36.0); PLATELET COUNT 243 K/uL (150-450); RED BLOOD COUNT 4.15 M/uL (4.00-6.00)
[2024-04-12 08:06] LABS: ALBUMIN 2.6 gm/dL (3.4-5.0); CREATININE SERUM 1.54 mg/dL (0.70-1.30); GFR 44.75; PHOSPHOROUS 2.3 mg/dL (2.5-4.9); POTASSIUM 3.94 mEq/L (3.5-5.1)
[2024-04-12] MEDS ORDERED: POTASSIUM PHOS,M-BASIC-D-BASIC 9 MM in 0.9 % SODIUM CHLORIDE 250 ML IV NR (08:45)
[2024-04-12] MEDS ORDERED: HYOSCYAMINE SULFATE 0.125 MG TAB.SUBL SL SCH (18:20)
[2024-04-12] MEDS ORDERED: PANTOPRAZOLE SODIUM 40 MG/VIAL VIAL IV PUSH STA (18:21)
[2024-04-12] MEDS ORDERED: MORPHINE SULFATE 4 MG/ML VIAL IV PRN (18:30)
[2024-04-12] MEDS ORDERED: ONDANSETRON HCL 2 MG/ML VIAL IV STA (21:50)
[2024-04-12] MEDS ORDERED: PROMETHAZINE HCL 50 MG/ML AMPUL IM ONE (22:00)
[2024-04-12] MEDS ORDERED: ONDANSETRON HCL 2 MG/ML VIAL IV PRN (22:00)
[2024-04-12] MEDS ORDERED: hydrALAZINE HCL 20 MG VIAL IV PRN (23:00)
[2024-04-13 07:03] LABS: HEMATOCRIT 37.4 % (39.0-48.0); HEMOGLOBIN 13.1 g/dL (13-16.00); MEAN CELL VOLUME 84.3 fL (80.0-100.00); MEAN CORPUSCULAR HEMOGLOBIN 29.6 pg (27.00-32.0); MEAN CORPUSCULAR HGB CONC 35.1 g/dl (32.0-36.0); PLATELET COUNT 265 K/uL (150-450); RED BLOOD COUNT 4.43 M/uL (4.00-6.00); RED CELL DISTRIBUTION WIDTH 16.2 % (11.5-14.5)
[2024-04-13 07:20] LABS: ALBUMIN 2.6 gm/dL (3.4-5.0); BILIRUBIN TOTAL 0.75 mg/dL (0.3-1.2); CALCIUM 8.5 mg/dL (8.5-10.1); CREATININE SERUM 1.54 mg/dL (0.70-1.30); GFR 44.75; GLOBULINA 3.2 G/DL (2.4-3.5); MAGNESIUM 1.8 mg/dL (1.8-2.4); PHOSPHOROUS 3.3 mg/dL (2.5-4.9); POTASSIUM 3.6 mEq/L (3.5-5.1); TOTAL PROTEIN 5.8 gm/dL (6.4-8.2)
[2024-04-13] MEDS ORDERED: CIPROFLOXACIN IN 5 % DEXTROSE 200 ML IV SCH (21:00)
[2024-04-13] MEDS ORDERED: METRONIDAZOLE/SODIUM CHLORIDE 100 ML IV SCH (21:00)
[2024-04-14 15:46] LABS: CALCIUM 8.2 mg/dL (8.5-10.1); CHOL HDL RATIO 3.8 (0-5.0); CREATININE SERUM 1.46 mg/dL (0.70-1.30); GFR 47.59; POTASSIUM 3.33 mEq/L (3.5-5.1)
[2024-04-14] MEDS ORDERED: POTASSIUM CHLORIDE 20MEQ/100ML H2O PB IV ONE (17:00)
[2024-04-14] MEDS ORDERED: AA 4.25%/CALCIUM/LYTES/DEX 10% 1,000 ML CENTRAL SCH (17:00)
[2024-04-15] MEDS ORDERED: PANTOPRAZOLE SODIUM 40 MG/VIAL VIAL IV PUSH SCH (17:00)
[2024-04-16 08:55] LABS: CALCIUM 8.4 mg/dL (8.5-10.1); CREATININE SERUM 1.41 mg/dL (0.70-1.30); GFR 49.55; MAGNESIUM 1.6 mg/dL (1.8-2.4); PHOSPHOROUS 2.9 mg/dL (2.5-4.9); POTASSIUM 3.49 mEq/L (3.5-5.1)
[2024-04-16 09:26] LABS: HEMOGLOBIN 11.7 g/dL (13-16.00); MEAN CELL VOLUME 84.9 fL (80.0-100.00); MEAN CORPUSCULAR HGB CONC 35.3 g/dl (32.0-36.0); PLATELET COUNT 211 K/uL (150-450); RED BLOOD COUNT 3.89 M/uL (4.00-6.00); RED CELL DISTRIBUTION WIDTH 16.3 % (11.5-14.5)
[2024-04-17] MEDS ORDERED: MAGNESIUM SULFATE 1,000 MG in 0.9 % SODIUM CHLORIDE 50 ML IV ONE (01:00)
[2024-04-17] MEDS ORDERED: POTASSIUM CHLORIDE/NACL 0.9% 1,000 ML IV ONE (01:00)
[2024-04-17] MEDS ORDERED: POTASSIUM CHLORIDE IN WATER 100 ML IV ONE (06:00)
[2024-04-17 13:27] LABS: CALCIUM 8.9 mg/dL (8.5-10.1); CREATININE SERUM 1.42 mg/dL (0.70-1.30); GFR 49.15
[2024-04-17 13:55] LABS: POTASSIUM 2.97 mEq/L (3.5-5.1)
[2024-04-17] MEDS ORDERED: POTASSIUM CHLORIDE IN WATER 40 MEQ/100 ML PIGGYBAG IV NR (14:15)
[2024-04-18] MEDS ORDERED: POTASSIUM CHLORIDE IN WATER 100 ML IV SCH (01:22)
[2024-04-18 09:51] LABS: UREA CLEARANCE 19.8 ML/MIN
[2024-04-19 06:50] LABS: HEMATOCRIT 29.7 % (39.0-48.0); HEMOGLOBIN 10.5 g/dL (13-16.00); MEAN CELL VOLUME 85.8 fL (80.0-100.00); MEAN CORPUSCULAR HEMOGLOBIN 30.2 pg (27.00-32.0); MEAN CORPUSCULAR HGB CONC 35.2 g/dl (32.0-36.0); PLATELET COUNT 165 K/uL (150-450); RED BLOOD COUNT 3.46 M/uL (4.00-6.00); RED CELL DISTRIBUTION WIDTH 16.2 % (11.5-14.5)
[2024-04-19 07:22] LABS: ALBUMIN 2.3 gm/dL (3.4-5.0); BILIRUBIN TOTAL 0.75 mg/dL (0.3-1.2); CALCIUM 8.2 mg/dL (8.5-10.1); CREATININE SERUM 1.33 mg/dL (0.70-1.30); GLOBULINA 2.5 G/DL (2.4-3.5); MAGNESIUM 1.7 mg/dL (1.8-2.4); PHOSPHOROUS 2.4 mg/dL (2.5-4.9); POTASSIUM 3.52 mEq/L (3.5-5.1); TOTAL PROTEIN 4.8 gm/dL (6.4-8.2)
[2024-04-19] MEDS ORDERED: PHYTONADIONE 10 MG/ML AMPUL IM SCH ×2 (09:00→12:00)
[2024-04-19] MEDS ORDERED: POTASSIUM PHOS,M-BASIC-D-BASIC 3 MM/ML VIAL IV NR (15:30)
[2024-04-19] MEDS ORDERED: MAGNESIUM SULFATE IN WATER 2 GM/50 ML PIGGYBAG IV NR (17:00)
[2024-04-20 07:36] LABS: HEMATOCRIT 33.4 % (39.0-48.0); HEMOGLOBIN 11.6 g/dL (13-16.00); MEAN CELL VOLUME 86.3 fL (80.0-100.00); MEAN CORPUSCULAR HEMOGLOBIN 29.9 pg (27.00-32.0); MEAN CORPUSCULAR HGB CONC 34.7 g/dl (32.0-36.0); PLATELET COUNT 217 K/uL (150-450); RED BLOOD COUNT 3.87 M/uL (4.00-6.00); RED CELL DISTRIBUTION WIDTH 16.7 % (11.5-14.5)
[2024-04-20 07:57] LABS: INR 1.12; PARTIAL THROMBOPLASTIN TIME 25.4 SECONDS (22.0-34.0); PROTHROMBIN TIME 11.7 SECONDS (9.0-11.5)
[2024-04-20 08:06] LABS: BILIRUBIN TOTAL 1.03 mg/dL (0.3-1.2); CALCIUM 8.6 mg/dL (8.5-10.1); CREATININE SERUM 1.51 mg/dL (0.70-1.30); GFR 45.78; GLOBULINA 2.8 G/DL (2.4-3.5); MAGNESIUM 2.2 mg/dL (1.8-2.4); PHOSPHOROUS 3.5 mg/dL (2.5-4.9); POTASSIUM 3.42 mEq/L (3.5-5.1); TOTAL PROTEIN 5.8 gm/dL (6.4-8.2)
[2024-04-20] MEDS ORDERED: INSULIN LISPRO 1,000 UNIT/10 ML UNITS SUBCUTANEO PRN (11:15)
[2024-04-20] MEDS ORDERED: DEXTROSE 50 % IN WATER 0.5 G/ML DISP.SYRIN IV PRN (11:15)
[2024-04-20] MEDS ORDERED: SODIUM CHLORIDE 0.45 % 1,000 ML IV SCH (11:15)
[2024-04-20] MEDS ORDERED: POTASSIUM CHLORIDE IN WATER 100 ML IV SCH (13:00)
[2024-04-20 15:12] LABS: URINE APPEARANCE Clear; URINE BACTERIA 22.6 uL (0.0-1933); URINE BILIRRUBIN Small (NEGATIVE); URINE BLOOD Negative; URINE COLOR Dark Yellow; URINE EPITHELIAL CELLS 2.1 uL (0.0-38.8); URINE GLUCOSE Negative (NEGATIVE); URINE LEUKOCYTE Trace; URINE NITRATE Negative; URINE PROTEIN 30 (NEGATIVE); URINE WBC 4.3 uL (0.0-23.2)
[2024-04-21] MEDS ORDERED: ONDANSETRON HCL 2 MG/ML VIAL IV PRN (14:30)
[2024-04-21] MEDS ORDERED: MORPHINE SULFATE 4 MG/ML CARTRIDGE IV PRN (14:30)
[2024-04-21] MEDS ORDERED: DEXTROSE 50 % IN WATER 0.5 G/ML DISP.SYRIN IV PRN (14:30)
[2024-04-21] MEDS ORDERED: 0.9 % SODIUM CHLORIDE 1,000 ML IV SCH (14:30)
[2024-04-21] MEDS ORDERED: OxyCODONE HCL 5 MG TABLET (ROXICODONE) PO PRN (14:30)
[2024-04-21] MEDS ORDERED: METRONIDAZOLE/SODIUM CHLORIDE 500 MG/100 ML PIGGYBACK IV SCH (17:00)
[2024-04-21] MEDS ORDERED: HYOSCYAMINE SULFATE 0.125 MG TAB.SUBL SL SCH (17:00)
[2024-04-21] MEDS ORDERED: GABAPENTIN 300 MG CAPSULE PO SCH (17:00)
[2024-04-21] MEDS ORDERED: POLYETHYLENE GLYCOL 3350 17 GM BLIST.PACK PO SCH (17:00)
[2024-04-21 19:17] LABS: HEMATOCRIT 33.2 % (39.0-48.0); HEMOGLOBIN 11.2 g/dL (13-16.00); MEAN CELL VOLUME 87.7 fL (80.0-100.00); MEAN CORPUSCULAR HEMOGLOBIN 29.6 pg (27.00-32.0); MEAN CORPUSCULAR HGB CONC 33.7 g/dl (32.0-36.0); PLATELET COUNT 225 K/uL (150-450); RED BLOOD COUNT 3.79 M/uL (4.00-6.00); RED CELL DISTRIBUTION WIDTH 16.4 % (11.5-14.5)
[2024-04-21 19:41] LABS: CALCIUM 8.2 mg/dL (8.5-10.1); CREATININE SERUM 1.72 mg/dL (0.70-1.30); GFR 39.39; MAGNESIUM 1.8 mg/dL (1.8-2.4); PHOSPHOROUS 3.6 mg/dL (2.5-4.9)
[2024-04-21] MEDS ORDERED: ACETAMINOPHEN 500 MG GEL..CAP PO SCH (20:00)
[2024-04-21] MEDS ORDERED: FAMOTIDINE/PF 20 MG/2 ML VIAL IV PUSH SCH (21:00)
[2024-04-22 08:07] LABS: HEMATOCRIT 30.9 % (39.0-48.0); HEMOGLOBIN 10.6 g/dL (13-16.00); MEAN CELL VOLUME 88.5 fL (80.0-100.00); MEAN CORPUSCULAR HEMOGLOBIN 30.4 pg (27.00-32.0); MEAN CORPUSCULAR HGB CONC 34.3 g/dl (32.0-36.0); PLATELET COUNT 185 K/uL (150-450); RED BLOOD COUNT 3.49 M/uL (4.00-6.00); RED CELL DISTRIBUTION WIDTH 16.4 % (11.5-14.5)
[2024-04-22 08:51] LABS: ALBUMIN 2.8 gm/dL (3.4-5.0); BILIRUBIN TOTAL 0.65 mg/dL (0.3-1.2); CALCIUM 8.2 mg/dL (8.5-10.1); CREATININE SERUM 1.5 mg/dL (0.70-1.30); GFR 46.13; GLOBULINA 2.6 G/DL (2.4-3.5); MAGNESIUM 1.9 mg/dL (1.8-2.4); PHOSPHOROUS 2.8 mg/dL (2.5-4.9); POTASSIUM 4.32 mEq/L (3.5-5.1); TOTAL PROTEIN 5.4 gm/dL (6.4-8.2)
[2024-04-22] MEDS ORDERED: ENOXAPARIN SODIUM 40 MG/0.4 ML SYRINGE SUBCUTANEO SCH (17:00)
[2024-04-22] MEDS ORDERED: DIPHENHYDRAMINE HCL 50 MG/ML VIAL 1ML IV STA (18:09)
[2024-04-22] MEDS ORDERED: DIPHENHYDRAMINE HCL 50 MG/ML VIAL 1ML IV SCH (21:00)
[2024-04-23] MEDS ORDERED: ENOXAPARIN SODIUM 40 MG/0.4 ML SYRINGE SUBCUTANEO SCH (09:00)
[2024-04-24 07:57] LABS: ALBUMIN 2.7 gm/dL (3.4-5.0); BILIRUBIN TOTAL 0.7 mg/dL (0.3-1.2); CALCIUM 8.6 mg/dL (8.5-10.1); CREATININE SERUM 1.38 mg/dL (0.70-1.30); GFR 50.79; GLOBULINA 2.9 G/DL (2.4-3.5); POTASSIUM 4.97 mEq/L (3.5-5.1); TOTAL PROTEIN 5.6 gm/dL (6.4-8.2)
[2024-04-24 07:59] LABS: HEMATOCRIT 30.4 % (39.0-48.0); HEMOGLOBIN 10.6 g/dL (13-16.00); MEAN CELL VOLUME 89.4 fL (80.0-100.00); MEAN CORPUSCULAR HEMOGLOBIN 31.1 pg (27.00-32.0); MEAN CORPUSCULAR HGB CONC 34.8 g/dl (32.0-36.0); PLATELET COUNT 193 K/uL (150-450); RED BLOOD COUNT 3.41 M/uL (4.00-6.00); RED CELL DISTRIBUTION WIDTH 16.2 % (11.5-14.5)
[2024-04-24] MEDS ORDERED: AA 4.25%/CALCIUM/LYTES/DEX 10% 1,000 ML CENTRAL SCH (17:00)
[2024-04-25 08:12] LABS: HEMATOCRIT 32.1 % (39.0-48.0); MEAN CELL VOLUME 89.4 fL (80.0-100.00); MEAN CORPUSCULAR HEMOGLOBIN 30.8 pg (27.00-32.0); MEAN CORPUSCULAR HGB CONC 34.5 g/dl (32.0-36.0); PLATELET COUNT 311 K/uL (150-450); RED BLOOD COUNT 3.59 M/uL (4.00-6.00); RED CELL DISTRIBUTION WIDTH 16.5 % (11.5-14.5)
[2024-04-25 08:34] LABS: INR 0.97; PARTIAL THROMBOPLASTIN TIME 26.5 SECONDS (22.0-34.0); PROTHROMBIN TIME 10.2 SECONDS (9.0-11.5)
[2024-04-25 08:52] LABS: ALBUMIN 2.8 gm/dL (3.4-5.0); BILIRUBIN TOTAL 0.69 mg/dL (0.3-1.2); BILIRUBIN,CONJUGATED 0.26 mg/dL (0.0-0.2); BILIRUBIN,UNCONJUGATED 0.43 mg/dL (0.0-0.6); CALCIUM 8.9 mg/dL (8.5-10.1); CHOL HDL RATIO 3.9 (0-5.0); CREATININE SERUM 1.49 mg/dL (0.70-1.30); GFR 46.49; GLOBULINA 3.2 G/DL (2.4-3.5); MAGNESIUM 1.7 mg/dL (1.8-2.4); POTASSIUM 4.13 mEq/L (3.5-5.1)
[2024-04-25] MEDS ORDERED: TRAM1TAB98 PO (09:23)
[2024-04-25] MEDS ORDERED: PEPCID AC20 MG PO (09:23)
[2024-04-25] MEDS ORDERED: MAGNESIUM SULFATE 50% 1,000 MG/2 ML VIAL IV ONE (10:30)
== END 2024-04-25 11:02 | disposition home or self-care (01) | DRG 330 ==
LOC: ER 12:43 → SURH 22:02 → SURG 22:02 → SURH 04-20 18:11 → SURG 04-23 10:50
PROVIDERS: General Practice; Internal Medicine; Internal Medicine Infectious Disease; Internal Medicine Nephrology; Nurse Practitioner Family; Surgery; ADMIT Internal Medicine; ATTEND Internal Medicine
PROC: BW21ZZZ Computerized Tomography (CT Scan) of Abdomen and Pelvis (ICD-10-PCS; 2024-04-05)
PROC: 0D9670Z Drainage of Stomach with Drainage Device, Via Natural or Artificial Opening (ICD-10-PCS; 2024-04-07)
PROC: 3E0G76Z Introduction of Nutritional Substance into Upper GI, Via Natural or Artificial Opening (ICD-10-PCS; 2024-04-07)
PROC: 02HV33Z Insertion of Infusion Device into Superior Vena Cava, Percutaneous Approach (ICD-10-PCS; 2024-04-10)
PROC: 30243N1 Transfusion of Nonautologous Red Blood Cells into Central Vein, Percutaneous Approach (ICD-10-PCS; 2024-04-11)
PROC: BW21ZZZ Computerized Tomography (CT Scan) of Abdomen and Pelvis (ICD-10-PCS; 2024-04-12)
PROC: BW21ZZZ Computerized Tomography (CT Scan) of Abdomen and Pelvis (ICD-10-PCS; 2024-04-17)
PROC: 0DNW4ZZ Release Peritoneum, Percutaneous Endoscopic Approach (ICD-10-PCS; 2024-04-21)
PROC: 0DBB4ZZ Excision of Ileum, Percutaneous Endoscopic Approach (ICD-10-PCS; 2024-04-21)
PROC: 0DB84ZZ Excision of Small Intestine, Percutaneous Endoscopic Approach (ICD-10-PCS; principal; 2024-04-21 18:15)
DX: K56.609 Unspecified intestinal obstruction, unspecified as to partial versus complete obstruction (principal); E87.0 Hyperosmolality and hypernatremia; I12.9 Hypertensive chronic kidney disease with stage 1 through stage 4 chronic kidney disease, or unspecified chronic kidney disease; N18.9 Chronic kidney disease, unspecified; E87.6 Hypokalemia; K31.84 Gastroparesis; K56.600 Partial intestinal obstruction, unspecified as to cause; K66.0 Peritoneal adhesions (postprocedural) (postinfection)

== ENCOUNTER 2024-07-16 00:02 | Emergency (ER) | payer OTHER ==
[~2024-07-16] VITALS: Ht 172.7 cm; Wt 56.7 kg
[~2024-07-16 00:02] MED LIST changes: +MICARDIS40 MG PO; +SEROQUEL25 MG
[2024-07-16] MEDS ORDERED: RINGERS SOLUTION,LACTATED 1,000 ML IV STA (01:15)
[2024-07-16] MEDS ORDERED: ONDANSETRON HCL 2 MG/ML VIAL IV STA (01:16)
[2024-07-16] MEDS ORDERED: METOCLOPRAMIDE HCL 5 MG/ML VIAL IM STA (01:16)
[2024-07-16] MEDS ORDERED: FAMOtidine 10 MG/ML (4ML VIAL) IV PUSH STA (01:17)
== END 2024-07-16 03:33 | disposition home or self-care (01) ==
LOC: ER 00:02
DX: K31.84 Gastroparesis (principal); Z88.6 Allergy status to analgesic agent
CPT/HCPCS: 96365; 96372; 99283; J2405; J2765; J3490

== ENCOUNTER → 2025-03-22 12:10 | Outpatient (CLI) | payer OTHER | END | disposition home or self-care (01) | LOC: RAD 12:10 | PROVIDERS: ATTEND Surgery | DX: I10 Essential (primary) hypertension (principal) ==

== ENCOUNTER 2025-04-13 10:45 | Day surgery (SDC) | payer OTHER ==
[~2025-04-13] VITALS: Ht 172.7 cm; Wt 77.1 kg
[~2025-04-13 10:45] MED LIST changes: +MIRTAZAPINE; +PROCARDIA 60MG; +PROZAC20 MG
[2025-04-13] MEDS ORDERED: CEFAZOLIN SODIUM 1,000 MG VIAL IV ONE (13:45)
[2025-04-13] MEDS ORDERED: BUPIVACAINE HCL 30 ML VIAL IJ ONE (14:45)
[2025-04-13] MEDS ORDERED: MIRALAX17 GM PO (14:51)
[2025-04-13] MEDS ORDERED: KETO10TA2 PO (14:51)
[2025-04-13] MEDS ORDERED: TRAMADOL HCL50 MG PO (14:51)
[2025-04-13] MEDS ORDERED: TYLENOL ARTHRI650 MG PO (14:51)
== END 2025-04-13 17:40 | disposition home or self-care (01) ==
LOC: CIR.AMB 10:45
PROVIDERS: ATTEND Surgery
DX: K40.30 Unilateral inguinal hernia, with obstruction, without gangrene, not specified as recurrent (principal)
CPT/HCPCS: 49507; C1781